=== PATIENT | female | born 1955 | race Caucasian/White ===

== ENCOUNTER 2017-12-06 18:51 | Emergency (ER) | payer MEDICARE ==
--- NOTE | 2017-12-06 19:08 | ED ---
URI HPI - General Chief Complaint: Upper Respiratory Infection Stated Complaint: Poss Pneumonia, SHoulder/arm pain Time Seen by Provider: 12/06/17 18:59 Source: patient, RN notes reviewed Mode of arrival: ambulatory Limitations: no limitations - History of Present Illness Initial Comments: This is a 62-year-old female who presents to the emergency department with chief complaint of cough. Patient states that she developed a sore throat 2 weeks ago. She states that that then subsided but then she developed a cough. She states that for she was coughing up clear sputum but it is now turned yellow. She states she does have a history of asthma and is a current, every day smoker. She denies any shortness of breath. She states she does not take any medications for asthma and does not have an albuterol inhaler. She denies any fevers or chills, chest pain, abdominal pain, nausea or vomiting, diarrhea or constipation, dysuria or hematuria. Patient states she is concerned that she may have pneumonia. Patient also complains of some left shoulder and left upper back pain. She does report a history of arthritis. She states that the pain is positional and increases with movement and touch. She denies any specific injury or trauma. - Related Data Previous Rx's Medication Instructions Recorded Cephalexin [Keflex] 500 mg PO Q6HR #40 cap 06/16/17 HYDROcodone/APAP 5-325MG [[place] 1 tab PO Q6HR PRN #20 tab 06/16/17 5-325] Azithromycin [Zithromax Z-pack] 0 mg PO DIRECTED #6 tab 12/06/17 predniSONE 20 mg PO BID #4 tab 12/06/17 Allergies Allergy/AdvReac Type Severity Reaction Status Date / Time No Known Allergies Allergy Verified 12/06/17 18:56 Review of Systems ROS Statement: Those systems with pertinent positive or pertinent negative responses have been documented in the HPI. ROS Other: All systems not noted in ROS Statement are negative. Past Medical History Past Medical History: No Reported History Additional Past Medical History / Comment(s): back pain/ arthritis History of Any Multi-Drug Resistant Organisms: None Reported Past Surgical History: Section Past Psychological History: No Psychological Hx Reported Smoking Status: Current every day smoker Past Alcohol Use History: None Reported Past Drug Use History: Marijuana General Exam - General Exam Comments Initial Comments: General: Awake and alert, well-developed; in no apparent distress. Sister is at bedside. HEENT: Head atraumatic, normocephalic. Pupils are equal, round and reactive to light. Extraocular movements intact. Oropharynx moist without erythema or exudate. Neck: Supple. Normal ROM. Cardiovascular: Regular rate and rhythm. No murmurs, rubs or gallops. Chest symmetrical. Respiratory: Lungs clear to auscultation bilaterally. No wheezes, rales or rhonchi. Normal respiratory effort with no use of accessory muscles. Musculoskeletal: Normal ROM of left upper extremity. There is mild generalized tenderness on palpation of left shoulder and scapula. Sensation is intact. Radial pulses are 2+ equal and palpable bilaterally. Skin: [place], warm and dry without rashes or lesions. Neurological: Alert and oriented x3. CN II-XII grossly intact. Speech is fluent and answers are appropriate. No focal neuro deficits. Psychiatric: Normal mood and affect. No overt signs of depression or anxiety noted. Limitations: no limitations Course Vital Signs 12/06/17 12/06/17 18:53 19:08 Temperature 97.6 F Pulse Rate 78 74 Respiratory 18 17 Rate Blood Pressure 139/66 148/68 O2 Sat by Pulse 98 96 Oximetry Medical Decision Making - Medical Decision Making This is a 62-year-old female who presents to the emergency department with chief complaint of productive cough. Patient states that she's been coughing for 2 weeks and is concerned for pneumonia. She also reports left shoulder and scapular pain which is reproducible. On presentation vital signs are stable and patient is afebrile. She denies any fevers or chills, shortness of breath, nausea or vomiting. Chest x-ray revealed no acute abnormalities. EKG revealed normal sinus rhythm. Patient is a current, every day smoker. She does report a history of asthma. Patient will be treated as a COPD exacerbation. She'll be started on antibiotics and a course of steroids. Patient is in agreement with plan and voices understanding. All questions answered. - EKG Data EKG Comments: 19:27:27. Normal sinus rhythm, low voltage QRS. Ventricular rate 77 bpm, [place] interval 136, QRS duration 70, QT/QTC 390/441. - Radiology Data Radiology results: report reviewed, image reviewed X-ray impression: No acute cardiopulmonary process. Disposition Clinical Impression: COPD with acute exacerbation Disposition: HOME SELF-CARE Condition: Good Instructions: Acute Cough (ED), Acute Bronchitis (ED) Additional Instructions: Please take medications as prescribed. Please follow up with primary care provider within 1-2 days. Return to emergency department if symptoms should worsen or any concerns arise. Prescriptions: Azithromycin [Zithromax Z-pack] 0 mg PO DIRECTED #6 tab predniSONE 20 mg PO BID #4 tab Is patient prescribed a controlled substance at d/c from ED?: No Referrals: None,Stated [Primary Care Provider] - 1-2 days Time of Disposition: 19:39
--- NOTE | 2017-12-06 19:27 | XR ---
EXAMINATION TYPE: XR chest 2V DATE OF EXAM: 12/06/2017 COMPARISON: NONE HISTORY: Cough TECHNIQUE: Frontal and lateral views of the chest are obtained. FINDINGS: There is no focal air space opacity, pleural effusion, or pneumothorax seen. The cardiac silhouette size is within normal limits. The osseous structures are intact. IMPRESSION: No acute cardiopulmonary process.
[2017-12-06] MEDS ORDERED: predniSONE 50 MG TAB PO STA (19:36)
[2017-12-06 20:15] VITALS: BP 131/62; PULSE 77; RESP 18; TEMP 97.9
== END 2017-12-06 20:22 | disposition home or self-care (01) ==
LOC: EC 18:51
DX: J44.1 Chronic obstructive pulmonary disease with (acute) exacerbation (principal); M25.512 Pain in left shoulder; M54.6 Pain in thoracic spine; M19.90 Unspecified osteoarthritis, unspecified site; F17.200 Nicotine dependence, unspecified, uncomplicated
CPT/HCPCS: 93005; 71046; 99283; J7512

== ENCOUNTER 2021-03-19 11:08 | Emergency (ER) | payer MEDICARE ==
[2021-03-19 11:34] VITALS: TEMP 98.1
[2021-03-19] MEDS ORDERED: KETOROLAC 15 MG/ML 1 ML VIAL IM STA (11:51)
--- NOTE | 2021-03-19 12:27 | XR ---
EXAMINATION TYPE: XR lumbar spine 2 or 3V DATE OF EXAM: 03/19/2021 CLINICAL HISTORY: pain TECHNIQUE: Three views of the lumbar spine are submitted. COMPARISON: None. FINDINGS: There are 5 lumbar type vertebral bodies identified. Mild curvature convex to the left. Vertebral bod y heights are within normal limits. Moderate degenerative change at L2-3. Ventral spondylosis. Face t joint arthropathy. The overlying soft tissue appears unremarkable. IMPRESSION: No acute fracture or dislocation is seen in the lumbar spine. ICD 10 NO FRACTURE, INITIAL EVALUATION
--- NOTE | 2021-03-19 12:27 | XR ---
EXAMINATION TYPE: XR pelvis AP view DATE OF EXAM: 03/19/2021 CLINICAL HISTORY: pain TECHNIQUE: Single view the pelvis is submitted. FINDINGS: No evidence for fracture, dislocation or bony lesion. Joint spaces are well-preserved. S I joints appear symmetric. IMPRESSION: 1. No acute fracture or dislocation seen. ICD 10 NO FRACTURE, INITIAL EVALUATION
--- NOTE | 2021-03-19 12:28 | XR ---
EXAMINATION TYPE: XR sacrum coccyx DATE OF EXAM: 03/19/2021 CLINICAL HISTORY: pain TECHNIQUE: Three views of the sacrum and coccyx are submitted. COMPARISON: None Sacral alae appear symmetric. No evidence for fracture or bony lesion. Sacroiliac joints are within normal limits. Visualized coccygeal segments are free of fracture or lesion. IMPRESSION: Normal study
--- NOTE | 2021-03-19 12:48 | ED ---
General Adult HPI - General Chief complaint: Back Pain/Injury Stated complaint: Fall off a chair a few days ago,back pain Time Seen by Provider: 03/19/21 11:39 Source: patient Mode of arrival: ambulatory Limitations: no limitations - History of Present Illness Initial comments: 65-year-old female presents to the emergency room for low back pain and tailbone pain. Patient fell off of a bar stool 3 days ago. She fell onto her buttock. Patient states it is painful to sit and when she is sitting it is hard to get up. Patient states she can walk without difficulty.patient did not hit her head. She does not take blood thinners. Patient has no other complaints at this time including shortness of breath, chest pain, abdominal pain, nausea or vomiting, headache, or visual changes. - Related Data Previous Rx's Medication Instructions Recorded Cephalexin [Keflex] 500 mg PO Q6HR #40 cap 06/16/17 HYDROcodone/APAP 5-325MG [[place] 1 tab PO Q6HR PRN #20 tab 06/16/17 5-325] Azithromycin [Zithromax Z-pack (6 0 mg PO DIRECTED #6 tab 12/06/17 tabs)] predniSONE [Deltasone] 20 mg PO BID #4 tab 12/06/17 Allergies Allergy/AdvReac Type Severity Reaction Status Date / Time No Known Allergies Allergy Verified 03/19/21 11:33 Review of Systems ROS Statement: Those systems with pertinent positive or pertinent negative responses have been documented in the HPI. ROS Other: All systems not noted in ROS Statement are negative. Past Medical History Past Medical History: No Reported History Additional Past Medical History / Comment(s): back pain/ arthritis History of Any Multi-Drug Resistant Organisms: None Reported Past Surgical History: Section Past Psychological History: No Psychological Hx Reported Smoking Status: Current every day smoker Past Alcohol Use History: None Reported Past Drug Use History: Marijuana General Exam Limitations: no limitations General appearance: alert, in no apparent distress Head exam: Present: atraumatic Eye exam: Present: normal appearance, PERRL, EOMI. Absent: scleral icterus, conjunctival injection ENT exam: Present: normal exam, mucous membranes moist Neck exam: Present: normal inspection, full ROM. Absent: tenderness Respiratory exam: Present: normal lung sounds bilaterally. Absent: respiratory distress, wheezes Cardiovascular Exam: Present: regular rate, normal rhythm, normal heart sounds GI/Abdominal exam: Present: soft. Absent: distended, tenderness Back exam: Present: paraspinal tenderness (Generalized lower back tenderness.), vertebral tenderness, other (She does have minimal ecchymosis above the gluteal cleft. No other ecchymosis noted.) Course Vital Signs 03/19/21 11:30 Temperature 98.1 F Pulse Rate 98 Respiratory 20 Rate Blood Pressure 115/76 O2 Sat by Pulse 99 Oximetry Medical Decision Making - Medical Decision Making X-ray of the lumbar spine shows no acute fracture or dislocation. X-ray of the pelvis, sacrum, and coccyx are negative for acute fracture as well. Patient was given Toradol as she is driving home. Patient ambulatory in the emergency room. Patient will be discharged home with Tylenol 3. She'll return here for any worsening symptoms. Disposition Clinical Impression: Mechanical back pain Disposition: HOME SELF-CARE Condition: Good Instructions (If sedation given, give patient instructions): Acute Low Back Pain (ED) Additional Instructions: Please take Motrin for pain. If pain is severe take Tylenol 3. Follow-up with your doctor in one to 2 days. Return to the emergency room for any worsening symptoms. Is patient prescribed a controlled substance at d/c from ED?: No Referrals: Joleen Baeza MD [STAFF PHYSICIAN] - 1-2 days Time of Disposition: 13:02
[2021-03-19] MEDS ORDERED: ACET/COD 300 MG/30 MG STARTER PACK 6 TAB BTL PO STA (13:02)
[2021-03-19 13:16] VITALS: BP 144/82; PULSE 78; RESP 18
== END 2021-03-19 13:16 | disposition home or self-care (01) ==
LOC: EC 11:08
DX: M54.5 Low back pain (principal); F17.200 Nicotine dependence, unspecified, uncomplicated; F12.90 Cannabis use, unspecified, uncomplicated
CPT/HCPCS: 72100; 72170; 72220; 99283; 96372; J1885

== ENCOUNTER → 2023-05-09 | Outpatient (CLI) | payer MEDICARE ==
[2023-05-09 17:33] LABS: ALT 8 U/L (8-44); AST 17 U/L (13-35); Albumin 4.3 d/dL (3.8-4.9); Albumin/Globulin Ratio 1.65 Ratio (1.60-3.17); Alkaline Phosphatase 92 U/L (41-126); BUN/Creat Ratio 15.29 Ratio (12.00-20.00); Blood Urea Nitrogen 10.7 mg/dL (9.0-27.0); Calcium 9.5 mg/dL (8.7-10.3); Chloride 100 mmol/L (96-109); Globulin 2.6 d/dL (1.6-3.3); Glucose 88 mg/dL (70-110); Lipase 33 U/L (14-63); Potassium 4.1 mmol/L (3.5-5.5); Sodium 141 mmol/L (135-145); Total Bilirubin 0.2 mg/dL (0.3-1.2); Total Protein 6.9 d/dL (6.2-8.2)
[2023-05-09 18:30] LABS: Basophils # (A) 0.08 X 10*3/uL (0.00-0.10); Basophils % (A) 0.8 %; Eosinophils # (A) 0.25 X 10*3/uL (0.04-0.35); Eosinophils % (A) 2.6 %; HCT 40.6 % (37.2-46.3); HGB 12.9 d/dL (12.0-15.0); MCH 31.3 pg (27.0-32.0); MCHC 31.8 d/dL (32.0-37.0); MCV 98.5 FL (80.0-97.0); Mean Platelet Volume 11.3 FL (9.5-12.2); Monocytes # (A) 0.64 X 10*3/uL (0.20-1.00); Monocytes % (A) 6.7 %; NRBC Per 100 WBC 0 X 10*3/uL (0.00-0.01); Neutrophils # (A) 4.61 X 10*3/uL (1.80-7.70); Neutrophils % (A) 48.6 %; Platelet Count 377 X 10*3/uL (140-440); RBC 4.12 X 10*6/uL (4.10-5.20); RDW 14.5 % (11.5-14.5); WBC 9.51 X 10*3/uL (4.50-10.00)
[2023-05-10 01:15] LABS: Appearance,Urine Clear (Clear); Bilirubin,Urine Negative (Negative); Blood,Urine Negative (Negative); Color,Urine Yellow (Yellow); Ketones,Urine Trace (Negative); Nitrite,Urine Negative (Negative); PH, Urine 6.5; Specific Gravity,Urine 1.021 (1.001-1.030)
== END | disposition home or self-care (01) ==
LOC: LABWHC1 11:55
PROVIDERS: ATTEND Family Medicine
DX: I10 Essential (primary) hypertension (principal); Z79.899 Other long term (current) drug therapy; B89 Unspecified parasitic disease
CPT/HCPCS: 36415; 80053; 81003; 83013; 83036; 83690; 84443; 85025; 87077; 87086; 87186

== ENCOUNTER → 2023-10-30 | Outpatient (CLI) | payer MEDICARE ==
--- NOTE | 2023-10-30 09:21 | NM ---
EXAMINATION TYPE: NM hepatobiliary w EF DATE OF EXAM: 10/30/2023 9:12 AM COMPARISON: None CLINICAL INDICATION:Female, 68 years old with history of R10.11 RIGHT UPPER QUADRANT PAIN; TECHNIQUE: The patient was given 4.86 mCi of Technetium 99m-Mebrofenin as a radiotracer and multiple scintigraphic images were obtained of the abdomen. Gallbladder function was also assessed after the administration of ensure drink and additional scintigraphic images were obtained of the abdomen. A re gion of interest was drawn over the gallbladder and a timing activity curve was generated. The gallbl adder ejection fraction was calculated. FINDINGS: Normal uptake of radiotracer was identified within the liver with excretion into the hepatic and comm on biliary ducts within the minutes. There was normal progressive washout of the liver over the cours e of the study. Radiotracer uptake within the gallbladder at 26 minutes as well as small bowel activi ty was identified at 18 minutes. Maximum calculated gallbladder ejection fraction is: 0% at 30 minutes (Normal gallbladder ejection fraction is > 35%) IMPRESSION: 1. Normal hepatobiliary scan. 2. Abnormal ejection fraction, there appear to be no response to ensure drink.
== END | disposition home or self-care (01) ==
LOC: RADNMMAIN 06:55
PROVIDERS: ATTEND Family Medicine
DX: R10.11 Right upper quadrant pain (principal)
CPT/HCPCS: 78226; A9537

== ENCOUNTER 2023-12-01 05:57 | Day surgery (SDC) | payer MEDICARE ==
[2023-11-28 09:31] VITALS: BMI 17.2
[2023-12-01] MEDS: LACTATED RINGERS 1,000 ML IV ONE (06:47)
[2023-12-01] MEDS ORDERED: MIDAZOLAM 2 MG/2 ML VIAL IV PRN (07:00)
[2023-12-01 07:14] VITALS: TEMP 97.1
[2023-12-01] MEDS: FAMOTIDINE 20 MG/2 ML VIAL IVP ONE (07:22)
[2023-12-01] MEDS: HEPARIN SODIUM,PORCINE 5,000 UNIT/ML 1 ML VIAL SQ PRN (07:22)
[2023-12-01] MEDS: ONDANSETRON 4 MG/2 ML VIAL IVP ONE (07:22)
[2023-12-01] MEDS: DEXAMETHASONE SOD PHOSPHATE 4 MG/ML 1 ML VIAL IV ONE (07:22)
[2023-12-01 07:23] LABS: Basophils # (A) 0.1 k/uL (0-0.2); Basophils % (A) 1 %; Eosinophils # (A) 0.4 k/uL (0-0.7); Eosinophils % (A) 3 %; HCT 43.4 % (34.0-46.0); HGB 14.1 gm/dL (11.4-16.0); Lymphocytes % (A) 23 %; MCH 32.1 pg (25.0-35.0); MCHC 32.5 g/dL (31.0-37.0); MCV 98.6 fL (80.0-100.0); Monocytes # (A) 0.5 k/uL (0-1.0); Monocytes % (A) 4 %; Neutrophils % (A) 67 %; Platelet Count 294 k/uL (150-450); RDW 13.7 % (11.5-15.5); WBC 13.3 k/uL (3.8-10.6)
[2023-12-01] MEDS: ACETAMINOPHEN TAB 500 MG TAB PO PRN (07:27)
[2023-12-01] MEDS ORDERED: SUCCINYLCHOLINE CHLORIDE 200 MG/10 ML VIAL IV ONE (07:30)
[2023-12-01] MEDS ORDERED: fentaNYL (PF) 50 MCG/ML 2 ML AMP ONE (07:30)
[2023-12-01] MEDS ORDERED: ROCURONIUM 10 MG/ML (5 ML VIAL) IV ONE (07:30)
[2023-12-01] MEDS ORDERED: LIDOCAINE 4% LTA KIT (4 ML) TOPICAL ONE (07:30)
[2023-12-01] MEDS ORDERED: GLYCOPYRROLATE 0.2 MG/ML 2 ML VIAL ONE (07:30)
[2023-12-01] MEDS ORDERED: NEOSTIGMINE 1 MG/ML 10 ML VIAL ONE (07:30)
[2023-12-01] MEDS ORDERED: LIDOCAINE 1% INJ 10MG/ML (20 ML MDV) ONE (07:30)
[2023-12-01] MEDS ORDERED: MIDAZOLAM 2 MG/2 ML VIAL ONE (07:30)
[2023-12-01] MEDS ORDERED: ePHEDrine 50 MG/ML 1 ML VIAL ONE (07:30)
[2023-12-01] MEDS ORDERED: PROPOFOL 10 MG/ML 20 ML VIAL IV ONE (07:30)
[2023-12-01] MEDS: LIDOCAINE 1%-EPI 1:100,000 20 ML VIAL SQ ONE (07:56)
[2023-12-01] MEDS: LACTATED RINGERS 1,000 ML IV SCH (08:11)
--- NOTE | 2023-12-01 08:19 | P.OP ---
Date of Procedure: 12/01/23 Preoperative Diagnosis: cholecystitis Postoperative Diagnosis: cholecystitis Procedure(s) Performed: laparoscopic cholecystectomy Anesthesia: MITCH Surgeon: Damion Roman Estimated Blood Loss (ml): 5 Pathology: none sent Condition: stable Disposition: PACU Description of Procedure: The patient was placed on the operating table. The patient received a general endotracheal tube anesthesia. The patients abdomen was prepped and draped in the usual sterile fashion. Through an infraumbilical stab incision, the fascia of the anterior abdominal wall was grasped with a pair of Kochers and then the Veress needle was placed in the peritoneal cavity. Position of the Veress needle was confirmed with positive drop test. The abdomen was then insufflated. After adequate insufflation, the 10 mm trocar was placed in the peritoneal cavity. Following this the laparoscope was placed in the peritoneal cavity. The patient was placed in the head-up, right side up position and then a 5 mm trocar was placed in the right lateral and right subcostal position under direct visualization. A 8 mm trocar was placed in the epigastric position. The gallbladder was grasped in the fundus and infundibulum. Traction on the gallbladder was placed in the lateral and the c ephalad positions. The triangle of [place] was visualized.. The cystic duct was bluntly dissected until the union of the cystic duct and common bile duct was seen. A critical view of safety was achieved. The cystic duct was then divided and sealed with the Harmonic scissors. A PDS Endoloop was then placed throughout the cystic duct stump. The cystic artery divided and sealed with the Harmonic scissors. The gallbladder was then removed from the liver bed using Harmonic scissors. The gallbladder was then extracted through the epigastric port site. Operative field was checked for any bleeding spots and Harmonic scissors was used to coagulate the liver bed. The abdomen was irrigated. The trocars were removed. The skin was closed using interrupted 3-0 Vicryl suture. Dermabond dressing were applied. The patient tolerated the procedure well.
[2023-12-01] MEDS: HYDROmorphone 0.5 MG/0.5 ML SYRINGE IVP PRN (08:35)
[2023-12-01] MEDS: hydrALAZINE HCL 20 MG/ML 1 ML VIAL IV ONE (09:10)
[2023-12-01 11:18] VITALS: BP 165/70; PULSE 72
[2023-12-01 11:19] VITALS: RESP 18
== END 2023-12-01 11:39 | disposition home or self-care (01) ==
LOC: OR 05:57
PROVIDERS: ATTEND Surgery
DX: K81.1 Chronic cholecystitis (principal); F17.200 Nicotine dependence, unspecified, uncomplicated; J44.9 Chronic obstructive pulmonary disease, unspecified; K21.9 Gastro-esophageal reflux disease without esophagitis; Z98.891 History of uterine scar from previous surgery; Z79.899 Other long term (current) drug therapy; Z79.51 Long term (current) use of inhaled steroids
CPT/HCPCS: 85025; 47562; J2250; J0330; J0360; J1644; J1100; J2710; J2405; J0690; J2001; J3010; J3490; J2704; J1170; 88304